=== PATIENT | male | born 1935 | race Asian ===

== ENCOUNTER 2020-10-11 15:45 | Inpatient (IN) | payer MEDICARE, OTHER ==
[~2020-10-11] VITALS: Ht 162.6 cm; Wt 72.1 kg
[2020-10-11] MEDS ORDERED: AMLO5TAB4 PO (15:55)
--- NOTE | 2020-10-11 16:59 | NUR ---
PT TRANSFERED TO MHU IN STABLE CNDITION. PT REMAINED CALM AND COOPERATIVE THE WHOLE ER STAY.
--- NOTE | 2020-10-11 17:00 | NUR ---
Gps/Jumpbasting Canvas Baster- Received report from Gillian LANE RN. Received patient from ER via wheel chair, in no sign of any distress. Follows simple directions in Ukrainian. Patient speaks Armenian, and limited Ukrainian . Unable to get much informations r/t to language barrier, and patient is [place] Called patient's son Marcelo who is out of town for business meetings ([phone]) ok to call him anytime. Noted patient appeared to be limited mobility during transfer r/t to long hx of left knee pain. Per son patient, tends to drink 5 shots of whisky every day for about 20 - 30 years. Per Son he hit his with cane , holding gun to family member per report. Per son Marcelo plan patient to be placed in a [facility] in [facility] after dc. from here . Routine admission care done.
[2020-10-11] MEDS ORDERED: MAGNESIUM HYDROXIDE 30 ML LIQUID UDC PO PRN (17:15)
[2020-10-11] MEDS ORDERED: LORAZEPAM 1 MG TABLET PO PRN (17:15)
[2020-10-11] MEDS ORDERED: ACETAMINOPHEN 325 MG TABLET PO PRN (17:15)
[2020-10-11] MEDS ORDERED: MAG HYDROX/AL HYDROX/SIMETH 30 ML LIQUID UDC PO PRN (17:15)
[2020-10-11] MEDS ORDERED: TEMAZEPAM 7.5 MG CAPSULE PO PRN (17:15)
--- NOTE | 2020-10-11 18:13 | NUR ---
Gps/Machine Operator- Onother patient's son Robby ([phone]) wants to be called anytime if there is any questions. Patient's Primary Doctor ( Dr Jus Patel) [phone]
[2020-10-11] MEDS ORDERED: LORAZEPAM 2 MG/1 ML VIAL IM ONE (18:30)
[2020-10-11] MEDS ORDERED: HALOPERIDOL LACTATE 5 MG/1 ML VIAL IM ONE (18:30)
--- NOTE | 2020-10-11 18:51 | NUR ---
Gps/Piano Instructor- Patient extremely agitated, wants to leave, pushing doors, loud, difficulty redirecting patient, threatening behavior . Dr Lemus was called by Technology ProfessionalMohit Rouse, orders received.
[2020-10-11 20:07] VITALS: BP 113/64
--- NOTE | 2020-10-12 03:25 | NUR ---
PATIENT RECEIVED SEATED A RECLINING CHAIR CALM COOPERATIVE WITH CARE, PATIENT CALM REDIRECTABLE, ASSISTED TO BED SLEEP WELL. PATIENT ASSISTED WITH TOILETING, CONTINENT OF BLADDER. CONT TO MONITOR.
[2020-10-12 07:30] VITALS: BP 150/79
--- NOTE | 2020-10-12 10:05 | NUR ---
Gps/Staff Development Manager- Patient was able to groomed self after set up, uses gestures to make needs known, Requested for a shower, set up, showered self. Gaits slightly unsteady r/t > pain to his left knee with mobility.Patient making gestures that he gets dizzy at times, b/p 147/84 HR 73 02 sat 96% .Reviewed safety, emphasized, encouraged using FWW
--- NOTE | 2020-10-12 10:17 | NUR ---
Gps/Robotype Operator- Son Marcelo called plan to come tongint, and to bring hearing aids, set of clothes to wear, and dentures, instructed to call first when he gets here , will notify security , claimed will possible be here by 1999.
--- NOTE | 2020-10-12 10:27 | NUR ---
SW Initial Discharge Note: Patient [place] [address] [address]; ([phone]) with son Marcelo ([phone]). This SW contacted patient's son Marcelo ([phone]) and left a detailed voicemail to discuss treatment and discharge plan. Per records, pt will possibly need a nursing facility. This will coordinate with family, pt, and MD to coordinate proper discharge.
--- NOTE | 2020-10-12 10:27 | NUR ---
[place] [employer]: Per records, pt had a gun at home this SW contacted [place] [employer] ([phone]) and requested to speak to Officer Millie Machado #[id number] and he was unavailable. Supervisor Research Kennel Consuelo stated that the officer stated he did not locate any firearms in the house.
--- NOTE | 2020-10-12 10:27 | NUR ---
Firearms Report: Developmental Psychologist completed and submitted a [employer] firearms report for 5150 grave disability certification. A copy of report has been placed in patient chart.
--- NOTE | 2020-10-12 10:31 | NUR ---
SW Family Contact: This SW contacted patient's son Marcelo ([phone]) and left a detailed voicemail to discuss treatment and discharge plan.
--- NOTE | 2020-10-12 10:56 | NUR ---
Substance Abuse Intervention: Patient was provided with a brief substance abuse intervention and referred to [facility] ([phone]), [facility] ([phone]), and [facility] ([phone]) for drinking whiskey.
--- NOTE | 2020-10-12 11:15 | NUR ---
Treatment Plan: This SW attempted to have pt sign treatment plan and pt refused due to his confusion. This SW attempted twice.
[2020-10-12 12:07] LABS: BILIRUBIN,TOTAL 0.9 mg/dL (0.2-1.0); CREATININE 1.1 mg/dL (0.6-1.3); POTASSIUM 3.5 mmol/L (3.5-5.1)
--- NOTE | 2020-10-12 14:30 | NUR ---
SW Individual Therapy: house worker met with patient for brief counseling to address patient's aggressive behavior. This SW attempted to use Cyracom but patient was uncooperative and did not want to engage in a meaningful conversation. Patient wanted to sleep.
--- NOTE | 2020-10-12 14:58 | NUR ---
SW Family Contact: This SW contacted patient's son Marcelo ([phone]) and discussed treatment and discharge plan. Chang Robertson stated that they have been looking into a nursing facility for pt called [facility] ([phone]) and would want this SW to coordinate with Maric Godoy the admin from the facility.
--- NOTE | 2020-10-12 14:59 | NUR ---
SNF Contact: This SW spoke with Marci Godoy admin from [facility] ([phone]) (C:[phone]) and stated that they have been in contact with pt and are potentially looking into placing pt at there facility. This SW stated that this television writer will send her pt's clinicals on 10/16 for placement option. Due to the holiday this television writer will not be able to send soon. This SW will work with admin and family to coordinate.
[2020-10-12 15:35] LABS: THYROID STIMULATING HORMONE 2.666 mIU/mL (0.358-3.740)
[2020-10-12 16:38] VITALS: BP 120/65
[2020-10-12 20:11] VITALS: BP 111/65
[2020-10-12] MEDS: DIVALPROEX 250 MG TABLET.DR PO SCH (20:43)
--- NOTE | 2020-10-13 05:55 | NUR ---
Pt asleep at this time, no complaints of pain during the shift. Compliant with HS meds. Sons brought some stuff for the patient. Dentures at bedside, hearing aids will be endorsed to day shift nurse. Safety precautions in place. Needs attended to. Frequent checks done.
[2020-10-13 07:00] LABS: BASOPHILS # (AUTO) 0.1 K/uL (0.0-8.0); BASOPHILS % (AUTO) 0.7 % (0.0-2.0); EOSINOPHILS # (AUTO) 0.1 K/uL (0.0-0.7); EOSINOPHILS % (AUTO) 1.6 % (0.0-7.0); HEMATOCRIT 42.6 % (36.7-47.1); HEMOGLOBIN 14.2 g/dL (12.5-16.3); LYMPHOCYTES # (AUTO) 2.5 K/uL (20.0-40.0); LYMPHOCYTES % (AUTO) 32.2 % (20.5-51.5); MEAN CORPUSCULAR HEMOGLOBIN 31.4 uug (23.8-33.4); MEAN CORPUSCULAR HGB CONC 33 g/dL (32.5-36.3); MEAN CORPUSCULAR VOLUME 94.1 fL (73.0-96.2); MONOCYTES # (AUTO) 0.4 K/uL (2.0-10.0); MONOCYTES % (AUTO) 4.6 % (0.0-11.0); NEUTROPHILS # (AUTO) 4.8 K/uL (1.8-8.9); NEUTROPHILS % (AUTO) 60.9 % (38.5-71.5); PLATELET COUNT (AUTO) 265 K/uL (152-348); RED BLOOD CELL COUNT(AUTO) 4.53 MIL/uL (4.06-5.63); WHITE BLOOD COUNT (AUTO) 7.9 K/uL (3.6-10.2)
[2020-10-13 08:08] VITALS: BP 127/69
[2020-10-13] MEDS: DIVALPROEX 250 MG TABLET.DR PO SCH ×3 (08:33→16:09)
[2020-10-13] MEDS: AMLODIPINE 5 MG TABLET PO SCH (08:34)
[2020-10-13 16:15] VITALS: BP 144/78
[2020-10-13 20:00] VITALS: BP 121/60
[2020-10-14 07:30] VITALS: BP 95/56
[2020-10-14] MEDS: DIVALPROEX 250 MG TABLET.DR PO SCH ×3 (08:31→16:15)
[2020-10-14] MEDS: AMLODIPINE 5 MG TABLET PO SCH (08:32)
[2020-10-14] MEDS: ENSURE ENLIVE (VAN) 240 ML LIQUID PO SCH (08:32)
[2020-10-14 15:12] VITALS: BP 115/62
[2020-10-14 20:10] VITALS: BP 103/67
[2020-10-15 07:30] VITALS: BP 124/72
[2020-10-15] MEDS: DIVALPROEX 250 MG TABLET.DR PO SCH ×3 (08:34→17:10)
[2020-10-15] MEDS: ENSURE ENLIVE (VAN) 240 ML LIQUID PO SCH (08:34)
[2020-10-15] MEDS: AMLODIPINE 5 MG TABLET PO SCH (08:34)
[2020-10-15 15:12] VITALS: BP 128/62
[2020-10-15 20:18] VITALS: BP 128/71
--- NOTE | 2020-10-16 06:19 | NUR ---
Received patient walking in the hallway. NO s/s of distress noted at this time. No complaints noted from the patient throughout shift. Pleasant and slept 5 hours. Safety measures and q15 min visual checks maintained.
[2020-10-16 07:30] VITALS: BP 140/71
[2020-10-16] MEDS: AMLODIPINE 5 MG TABLET PO SCH (08:14)
[2020-10-16] MEDS: DIVALPROEX 250 MG TABLET.DR PO SCH ×3 (08:14→17:14)
[2020-10-16] MEDS: ENSURE ENLIVE (VAN) 240 ML LIQUID PO SCH (08:15)
--- NOTE | 2020-10-16 09:56 | NUR ---
SNF Referral: This SW faxed Marci addison from [facility] ([phone]) ([phone]) patient's clinicals for possible placement. This SW faxed H & P notes, progress notes, and medication list.
--- NOTE | 2020-10-16 14:50 | NUR ---
SNF Contact: This SW received a call from Marci addison from [facility] ([phone]) (C:[phone]) who stated that they are unable to take pt due to aggressive behavior.
--- NOTE | 2020-10-16 14:50 | NUR ---
SNF Referral: This SW faxed patient's clinicals to Amador addison from [facility] ([phone]) for placement option. This SW faxed patient's H & P notes, progress notes, and medication list.
--- NOTE | 2020-10-16 14:51 | NUR ---
SW Family Contact: This SW spoke with patient's son Marcelo ([phone]) and expressed that [facility] denies pt due to aggressive behavior. This SW stated this leader writer will look into different nursing facilities and will let him know which accepts pt. He was agreeable with this plan.
--- NOTE | 2020-10-16 15:17 | NUR ---
SW Family Contact: This SW received a call from patient's son Robby ([phone]) who wanted an update on patient's discharge and treatment plan. This SW expressed that patient is not accepted at [facility] due to pt being aggressive. This SW stated that this teletypewriter operator can find another facility for pt. Robby was agreeable with this plan. He stated that he has been stressed trying to balance his fathers hospitalization and now his mother who has been hospitalized. This teletypewriter operator actively listened and provided emotional support.
[2020-10-16 16:04] VITALS: BP 120/70
[2020-10-16 20:10] VITALS: BP 120/64
[2020-10-17 07:30] VITALS: BP 122/64
--- NOTE | 2020-10-17 07:30 | NUR ---
Received report from VELMA Melendez. All questions, comments, and concerns were addressed. Received patient resting quietly and comfortably in assigned bed. Bed is in low and locked position with bed alarm on.
[2020-10-17] MEDS: ENSURE ENLIVE (VAN) 240 ML LIQUID PO SCH (08:22)
[2020-10-17] MEDS: DIVALPROEX 250 MG TABLET.DR PO SCH ×3 (08:25→16:09)
[2020-10-17] MEDS: AMLODIPINE 5 MG TABLET PO SCH (08:25)
--- NOTE | 2020-10-17 11:07 | NUR ---
SW Family Contact: This SW spoke with patient's son Marcelo ([phone]) and stated pt is accepted at [facility] and he was agreeable with this nursing facility.
--- NOTE | 2020-10-17 13:17 | NUR ---
SW Individual Therapy: freezer worker met with patient for brief counseling to address patient's aggressive behavior. This SW attempted to use Cyracom but patient was uncooperative and did not want to engage in a meaningful conversation. Patient was eating and avoiding eye contact with this SW and was shaking his head.
[2020-10-17 16:06] VITALS: BP 118/63
[2020-10-17 20:08] VITALS: BP 126/70
[2020-10-18 07:30] VITALS: BP 106/64
[2020-10-18] MEDS: DIVALPROEX 250 MG TABLET.DR PO SCH ×3 (08:17→16:16)
[2020-10-18] MEDS: AMLODIPINE 5 MG TABLET PO SCH (08:18)
[2020-10-18] MEDS: ENSURE ENLIVE (VAN) 240 ML LIQUID PO SCH (09:00)
--- NOTE | 2020-10-18 10:42 | NUR ---
Court Hearing: Patient's court hearing was today and it was upheld for GD.
--- NOTE | 2020-10-18 12:53 | NUR ---
Gps/Automatic Lathe Setter- Patient interacting with another patient that speaks Koream, ambulates around with FWW, had been compliant with medications, cooperative with staff. Pleasant affect and mood. Son Robby called wants to know progress of the patient, was able to talked to patient. patient has 2 hearing aid
--- NOTE | 2020-10-18 15:39 | NUR ---
Gps/Rural Service Engineer- Tends to talked out loud r/t to [facility] , wears bilateral hearing aid. Interacting fairly well with his Yoruba roommate. Continue to be redirectable, with appropriate behavior.
[2020-10-18 16:00] VITALS: BP 113/69
--- NOTE | 2020-10-18 19:00 | NUR ---
PATIENT ALERT SPEAK CHINESE BUT ABLE TO MAKE NEEDS KNOWN. PATIENT SOCIALIZING WITH ROOMMATES, NO COMPLAIN OF PAIN, CALM AND COOPERATIVE WITH CARE, PATIENT USES BATHROOM FOR B/B ELIMINATIONS, CONT TO MONITOR.
[2020-10-18 20:23] VITALS: BP 117/73
--- NOTE | 2020-10-19 06:04 | NUR ---
PATIENT AWAKE, SLEPT MOST OF THE NIGHT, PATIENT CALM AND COOPERATIVE WITH CARE. CONT TO MONITOR.
--- NOTE | 2020-10-19 08:10 | NUR ---
SW Note: Patient will be discharged to custodial facility, [facility] [place] [address]; ) via Ambulance transportation at 2:30PM. Test Hole Driller spoke with Amador Ep Tech at [facility]; ([phone]), who stated patient will be accepted back at facility today. Per, kalyn Robertson ([phone]) has been made aware and agreeable with discharge plans. Patient is alert and oriented x2 and is unable to plan for self-care. Patient denies any suicidal or homicidal ideations. Patient is aware and agreeable with discharge plans. Patient will continue to follow-up with (Psychiatrist) Dr. Lemus and (Operations Officer) Dr. Krishnamurthy at [facility] [[address] [place] [address]; ). Patient was provided referrals to the following substance abuse programs for substance abuse (alcohol): [facility] ([phone]); [facility] [address] [place] [address] ([phone]); [address] [address] ([phone]); [facility] ([phone]); [facility] ([phone]); [facility] ([phone]); [facility] ([phone]). Patient presents with euthymic mood and congruent affect.
[2020-10-19 08:11] VITALS: BP 123/58
[2020-10-19] MEDS: DIVALPROEX 250 MG TABLET.DR PO SCH ×2 (08:11→12:17)
[2020-10-19] MEDS: AMLODIPINE 5 MG TABLET PO SCH (08:11)
[2020-10-19] MEDS: ENSURE ENLIVE (VAN) 240 ML LIQUID PO SCH (09:41)
--- NOTE | 2020-10-19 13:14 | NUR ---
Gps/Network Analyst-Called [facility], report given to Mohit Julian. Patient and family were well informed of the discharge.river crossing supervisor time was arranged at 1400. via ambulance.
--- NOTE | 2020-10-19 15:00 | NUR ---
Gps/Room Service Bellhop- Discharged to [facility] via ambulance, all belongings given back to patient.Dentures and bilateral hearing aids on patient. Discharged in good spirit, no complaint, no distress noted.
== END 2020-10-19 15:00 | DRG 885 ==
LOC: ER 15:48 → GPS 16:49
PROVIDERS: ADMIT Psychiatry & Neurology Psychiatry
DX: F39 Unspecified mood [affective] disorder (principal); F03.91 Unspecified dementia, unspecified severity, with behavioral disturbance; F29 Unspecified psychosis not due to a substance or known physiological condition; E66.9 Obesity, unspecified; I10 Essential (primary) hypertension; Z73.6 Limitation of activities due to disability; F25.9 Schizoaffective disorder, unspecified; Z20.822 Contact with and (suspected) exposure to COVID-19; Z68.27 Body mass index [BMI] 27.0-27.9, adult
CPT/HCPCS: 36415; 71045; 84443; 85025; 93005; A4663; J1630; J2060; J3490